=== PATIENT | female | born 1945 | race Caucasian/White ===

== ENCOUNTER 2017-04-13 11:22 | Outpatient (CLI) | payer MEDICARE ==
[~2017-04-13] VITALS: Ht 160 cm; Wt 68.2 kg
--- NOTE | ~2017-04-13 | HEMODYNAMI ---
PATIENT:MEGHAN ARRIAGA MEDICAL RECORD: [id number] : 41 LOCATION:DTashCAT ADMISSION DATE: 04/13/17 Generatedon:04/13/201714:44 Patient name: MEGHAN ARRIAGA Patient #: [id number] SSN: : 1945 Date of study: 04/13/2017 Page: Of Hemodynamic Procedure Report Patient Data Patient Demographics Procedure consent was obtained First Name: MEGHAN Gender: Female Last Name: BART : 1945 Patient #: [id number] Age: 71 year(s) Race: Unknown Additional ID: [id number] Contact details Address: [facility] [address] State: [place] City: [place] Zip code: [address] Past Medical History Allergies Allergen Reaction Date Comments Reported Other allergy 04/13/2017 HCTZ Admission Admission Data Admission Date: 04/13/2017 Admission Time: 11:22 Lab Results Lab Result Date: 04/13/2017 Lab Result Time: 0:00 Biochemistry Name Units Result Min Max Creatinine mg/dl 1.1 --(--*-)-- 0.6 1.3 CBC Name Units Result Min Max Hemoglobin g/dl 12.8 -*(----)-- 13.5 17.5 Procedure Procedure Types Cath Procedure Diagnostic Procedure [facility] w/Coronaries PCI Procedure Coronary Stent Initial PTCA Additional Miscellaneous Procedures Moderate Sedation up to 45 minutes Peripheral Cath Diagnostic Procedure Cath Peripheral Four Vessel Arteriogram Procedure Description Procedure Date Procedure Date: 04/13/2017 Procedure Start Time: 14:05 Procedure End Time: 14:43 Procedure Staff Name Function Israel Barragan MD Performing Physician Ngoc King RT Scrub Mak Taylor RN Nurse Ángela Tabor RT Monitor Procedure Data Cath Procedure Fluoroscopy Diagnostic fluoroscopy Total fluoroscopy Time: time: 10.7 min 10.7 min Diagnostic fluoroscopy Total fluoroscopy dose: dose: 1425 mGy 1425 mGy Contrast Material Contrast Material Type Amount (ml) Isovue 300 195 Entry Location Entry Primary Successful Side Size Upsize Upsize Entry Closure Succes sful Closure Location (Fr) 1 (Fr) 2 (Fr) Remarks Device Remarks Femoral Right 5 Fr 6 Fr Exoseal artery Short Estimated blood loss: 10 ml Diagnostic catheters Device Type Used For End Catheter Placement Cordis 5Fr JL 4.0 Left Coronary Catheter (MP) Angiography Cordis 5Fr 3DRC Catheter Right Coronary (MP) Angiography Cordis 5Fr 3DRC Catheter Cervical carotid (MP) (common) arteriography Cordis 5Fr 3DRC Catheter Vertebral (neck (MP) and/or head) arteriography Cordis 5Fr Pigtail LV Angiography Catheter (MP) Procedure Complications No complications Procedure Medications Medication Administration Route Dosage Oxygen NC 2 l/min Heparin Flush Bag added to field 2 bags (1000units/500ml NS) 0.9% NaCl I.V. 100 ml/hr Fentanyl I.V. 50 mcg Versed I.V. 1 mg Fentanyl I.V. 50 mcg Versed I.V. 1 mg Fentanyl I.V. 50 mcg Heparin Bolus I.V. 4000 units Integrilin (Bolus I.V. 6.2 ml 2mg/ml) Integrilin (Bolus wasted 3.8 ml 2mg/ml) Fentanyl I.V. 50 mcg Plavix P.O. 600 mg Hemodynamics Rest HGB: 12.8 (g/dl) Heart Rate: 34 (bpm) Pressure Samples Time Site Value (mmHg) Purpose Heart Use Rate(bpm) 14:13 LV 116/12,17 EDP 61 Gradients Valve Time Site Site Mean SEP/DFP Peak To Heart Use 1 2 (mmHg) (sec/min) Peak Rate (mmHg) (bpm) Aortic 14:14 LV AO 62 Snapshots Pre Cath Intra NCS Post Cath Vital Signs Time Heart Resp SPO2 NIBP (mmHg) Rhythm Pain Sedation Rate (ipm) (%) Status Level (bpm) 13:56:22 58 17 100 168/65(115) NSR 0 (11) 10(A) , No pain 14:00:41 63 17 96 128/61(103) NSR 0 (11) 10(A) , No pain 14:04:54 63 18 100 139/64(107) NSR 0 (11) 10(A) , No pain 14:09:17 61 17 100 123/53(95) NSR 0 (11) 9(A) , No pain 14:13:33 61 16 99 117/50(94) NSR 0 (11) 9(A) , No pain 14:17:47 58 17 99 107/48(82) NSR 0 (11) 9(A) , No pain 14:21:59 62 17 99 100/43(71) NSR 0 (11) 9(A) , No pain 14:26:08 65 18 100 94/45(71) NSR 0 (11) 9(A) , No pain 14:30:16 64 18 100 100/41(72) NSR 0 (11) 9(A) , No pain 14:34:26 63 18 100 99/44(72) NSR 0 (11) 9(A) , No pain 14:38:30 82 18 100 100/59(81) NSR 0 (11) 9(A) , No pain 14:43:29 71 16 100 129/63(103) NSR 0 (11) 9(A) , No pain Medications Time Medication Route Dose Verified Delivered Reason Notes Effectiveness by by 13:56:30 Oxygen NC 2 Mak Mak Per physician l/min Brandon Taylor RN RN 13:56:41 Heparin Flush added 2 Mak Mak used for Bag to bags Brandon Taylor financial assistance specialist (1000units/500ml field RN NS) 13:56:53 0.9% NaCl I.V. 100 Mak Mak Per physician ml/hr Brandon Taylor RN RN 14:02:53 Fentanyl I.V. 50 Mak Mak for sedation mcg Brandon Taylor RN RN 14:03:02 Versed I.V. 1 mg Mak Mak for sedation Brandon Taylor RN RN 14:07:40 Fentanyl I.V. 50 Mak Mak for sedation mcg Brandon Taylor RN RN 14:07:43 Versed I.V. 1 mg Mak Mak for sedation Brandon Taylor RN RN 14:12:41 Fentanyl I.V. 50 Mak Mak for sedation mcg Brandon Taylor RN RN 14:16:17 Heparin Bolus I.V. 4000 Mak Mak for units Brandon Taylor RN anticoagulation RN 14:16:28 Integrilin I.V. 6.2 Mak Mak for (Bolus 2mg/ml) ml Brandon Taylor RN antiplatelet RN therapy 14:16:37 Integrilin wasted 3.8 Mak Corado for (Bolus 2mg/ml) ml Brandon Taylor RN antiplatelet RN therapy 14:30:31 Fentanyl I.V. 50 Mak Corado for sedation mcg Brandon Taylor RN RN 14:42:18 Plavix P.O. 600 Mak Corado for mg Brandon Taylor RN antiplatelet RN therapy Procedure Log Time Note 13:30:22 Mak Taylor RN sent for patient. Start room use. 13:39:22 Time tracking: Regular hours 13:39:26 Plan of Care:Hemodynamics will remain stable., Cardiac rhythm will remain stable., Comfort level will be maintained., Respiratory function will remain adequate., Patient/ family verbilizes understanding of procedure., Procedure tolerated without complication., Recovers from procedure without complications.. 13:47:02 Patient received from Pre/Post Procedure Room to CCL 2 Alert and oriented. Tansferred to table in Supine position. 13:47:03 Warm blankets applied, and geni hugger turned on for patient comfort. 13:47:03 Correct patient and procedure confirmed by team. 13:47:05 Signed procedure consent form obtained from patient. 13:47:06 ECG and BP/O2 sat monitors applied to patient. 13:47:06 Full Disclosure recording started 13:54:02 Vital chart was started 13:55:10 Baseline sample Acquired. 13:55:15 Rhythm: sinus bradycardia 13:55:25 H&P Date Dictated: 04/11/2017 Within 30 days and on chart., H&P Addendum completed by physician on day of procedure. (MUST COMPLETE FOR ALL OUTPATIENTS). 13:55:26 Pre-procedure instructions explained to patient. 13:55:26 Pre-op teaching completed and patient verbalized understanding. 13:55:29 Family in patients room. 13:55:31 Patient NPO since Midnight. 13:55:41 Patient allergic to Other allergyHCTZ 13:55:43 Is the patient allergic to Iodine/contrast media? No. 13:55:45 Is patient on blood thinner?No 13:55:46 Patient diabetic? No. 13:55:50 Previous problem with sedation/anesthesia? No ? 13:55:51 Snore? No 13:55:52 Sleep apnea? No 13:55:53 Deviated septum? No 13:55:53 Opens mouth fully? Yes 13:55:54 Sticks out tongue? Yes 13:55:56 Airway obstruction? No ? 13:55:59 Dentures? Yes IN 13:56:03 Pre procedure: right dorsailis pedis pulse 2+ Normal; easily identifiable; not easily obliterated 13:56:11 Patient pain scale 0/10 ?. 13:56:15 IV patent on arrival in left hand with 0.9% NaCl at [facility]. 13:56:30 Oxygen 2 l/min NC was administered by Mak Taylor RN; Per physician; 13:56:39 Lab Result : Creatinine 1.1 mg/dl 13:56:39 Lab Result : Hemoglobin 12.8 g/dl 13:56:41 Heparin Flush Bag (1000units/500ml NS) 2 bags added to field was administered by Mak Taylor RN; used for procedure; 13:56:43 Lab results completed and on chart. 13:56:47 Right groin area was prepped with chlora-prep and draped in sterile fashion 13:56:48 Alarms reviewed by R. N. 13:56:48 Sharps counted by scrub and verified by R.N. 13:56:53 0.9% NaCl 100 ml/hr I.V. was administered by Mak Taylor RN; Per physician; 13:56:53 Use device set Femoral Dx 13:56:55 Acist Syringe opened to sterile field. 13:56:55 Bag Decanter opened to sterile field. 13:56:56 Medline Cath Pack opened to sterile field. 13:56:56 Terumo 5Fr [place] Sheath opened to sterile field. 13:56:57 St Rutsy 260cm J .035 wire opened to sterile field. 13:56:58 Acist Hand Control opened to sterile field. 13:56:58 Acist Manifold opened to sterile field. 13:56:59 Diagnostic Infinity 5Fr Multipack catheter opened to sterile field. 13:56:59 Tegaderm 4 x 4 opened to sterile field. 13:57:12 Procedure type changed to Cath procedure, Diagnostic procedure, LHC, LHC w/Coronaries, PCI procedure, Coronary Stent Initial, PTCA Additional, Miscellaneous Procedures, Moderate Sedation up to 45 minutes, Peripheral Cath Diagnostic Procedure, Cath Peripheral, Four Vessel Arteriogram 14:02:26 Final Timeout: patient, procedure, and site verified with staff and physician. All members of the team are in agreement. 14:02:28 Right groin site verified by team. 14:02:30 Physical assessment completed. ASA score P 2 - A patient with mild systemic disease as per Israel Barragan MD. 14:02:33 Sedation plan: IV Moderate Sedation Versed, Fentanyl 14:02:53 Fentanyl 50 mcg I.V. was administered by Mak Taylor RN; for sedation; 14:03:02 Versed 1 mg I.V. was administered by Mak Taylor RN; for sedation; 14:05:07 Zero performed for pressure channel P1 14:05:12 Procedure started. 14:05:19 Local anesthetic to right femoral artery with Lidocaine 2% by Israel Barragan MD.INITIAL ACCESS ONLY 14:06:59 A 5 Fr sheath was inserted into the Right Femoral artery 14:07:22 A Cordis 5Fr JL 4.0 Catheter (MP) was advanced over the wire and used for Left Coronary Angiography. 14:07:40 Fentanyl 50 mcg I.V. was administered by Mak Taylor RN; for sedation; 14:07:43 Versed 1 mg I.V. was administered by Mak Taylor RN; for sedation; 14:08:55 Catheter removed. 14:09:00 A Cordis 5Fr 3DRC Catheter (MP) was advanced over the wire and used for Right Coronary Angiography. 14:10:31 A Cordis 5Fr 3DRC Catheter (MP) was advanced over the wire and used for Cervical carotid (common) arteriography. 14:11:31 A Cordis 5Fr 3DRC Catheter (MP) was advanced over the wire and used for Vertebral (neck and/or head) arteriography. 14:12:20 Catheter removed. 14:12:41 Fentanyl 50 mcg I.V. was administered by Mak Taylor RN; for sedation; 14:13:21 A Cordis 5Fr Pigtail Catheter (MP) was advanced over the wire and used for LV Angiography. 14:14:06 LV gram done using ANDERSON 14:14:11 EF : 55 % 14:14:14 Injector settings: Ml/sec: 5, Volume: 15, 14:14:21 Catheter removed. 14:14:42 Sheath upsized to a 6 Fr Short. 14:16:17 Heparin Bolus 4000 units I.V. was administered by Mak Taylor RN; for anticoagulation; 14:16:28 Integrilin (Bolus 2mg/ml) 6.2 ml I.V. was administered by Mak Taylor RN; for antiplatelet therapy; 14:16:37 Integrilin (Bolus 2mg/ml) 3.8 ml wasted was administered by Mak Taylor RN; for antiplatelet therapy; 14:17:06 6 Fr XBLAD 3.5 guide catheter was inserted over the wire 14:17:21 Cordis 6FR XBLAD 3.5 guide catheter opened to sterile field. 14:17:21 Vasquez [place] 300cm 0.014 guide wire opened to sterile field. 14:17:22 Terumo 6Fr [place] Sheath opened to sterile field. 14:19:54 [place] wire advanced. 14:23:42 Wire removed. unable to cross lesion. 14:24:01 Vasquez Whisper J 300cm 0.014 guide wire opened to sterile field. 14:24:10 Whisper wire advanced. 14:26:32 Inflation Number: 1 A Medtronic Integrity 3.5 X 18 stent was prepped and advanced across the Mid LAD. The stent was deployed at 12 MALVIN for 0:27 (min:sec). 14:27:12 Wire redirected to Diag. 14:29:36 Stent catheter was removed intact over wire. 14:30:31 Fentanyl 50 mcg I.V. was administered by Mak Taylor RN; for sedation; 14:31:38 Inflation number: 1 A Mozec Rx 2.5 x 14 balloon was prepped and advanced across the 1st Diag, then inflated to 8 MALVIN for 0:28 (min:sec). 14:32:50 Balloon removed over the wire. 14:33:57 Wire redirected to LAD. 14:37:18 Inflation Number: 2 A Medtronic Integrity 3.0 X 15 stent was prepped and advanced across the Mid LAD. The stent was deployed at 14 MALVIN for 0:33 (min:sec). 14:37:56 Stent catheter was removed intact over wire. 14:37:56 Wire removed. 14:37:57 Guide catheter removed. 14:38:11 Cordis 6Fr Exoseal opened to sterile field. 14:38:18 Sheath removed intact; hemostasis achieved with Exoseal to the Right Femoral artery. 14:38:20 Procedure ended.(Physican Out) 14:38:35 Fluoroscopy time 10.70 minutes. 14:38:37 Fluoroscopy dose: 1425 mGy 14:38:37 Flurop Dose total: 1425 14:38:40 Contrast amount:Isovue 300 195ml. 14:38:41 Sharps counted by scrub and verified by R.N. 14:38:42 Insertion/operative site no bleeding no hematoma. 14:38:44 Post-op/insertion site Right Femoral artery dressed using a 4 x 4 and Tegaderm. 14:38:48 Post right femoral artery:stable, clean and dry 14:38:49 Post Procedure Pulses reassessed and unchanged 14:38:51 Post-procedure physical assessment completed. ASA score P 2 - A patient with mild systemic disease as per Israel Barragan MD. 14:38:54 Post procedure rhythm: unchanged. 14:38:56 Estimated blood loss: 10 ml 14:38:57 Post procedure instruction explained to patient.Patient verbalizes understanding. 14:38:57 Patient needs reinforcement of post procedure teaching. 14:39:28 Procedure Complication : No complications 14:39:31 See physician's report for complete and final results. 14:41:55 Procedure and supply charges have been captured, reviewed, submitted and are correct. 14:42:18 Plavix 600 mg P.O. was administered by Mak Taylor RN; for antiplatelet therapy; 14:43:32 Vital chart was stopped 14:43:34 Report given to Pre/Post Procedure Room. 14:43:37 Patient transfered to Pre/Post Procedure Room with Stretcher. 14:43:39 Procedure ended. 14:43:39 Full Disclosure recording stopped 14:43:50 End room use (Document Last) Intervention Summary Intervention Notes Time ActionType Lesion and Equipment Action# Pressure Duration Attributes Used 14:26:32 Place stent Mid LAD Medtronic 1 12 00:27 Integrity 3.5 X 18 stent 14:31:38 Inflate 1st Diag Mozec Rx 1 8 00:28 balloon 2.5 x 14 balloon 14:37:18 Place stent Mid LAD Medtronic 2 14 00:33 Integrity 3.0 X 15 stent Device Usage Item Name Manufacture Quantity Catalog Hospital Part Current Minimal L ot# / Number Charge Number Stock Stock Serial# Code [facility] 1 [id number] 802940 900074 20 Syringe Medical [employer] Inc Bag Microtek 1 2002 854958 73752 596470 5 Management [employer] Medline Cardinal 1 [id number] 063768 16491 393823 5 Cath Pack Health Terumo 5Fr Terumo 1 [id number] 195950 245655 083429 [address] [place] [address] Rusty 1 541985 457621 623883 676649 30 260cm J .035 wire Acist Hand Acist 1 09437 748766 194103 130227 5 [employer] Inc Acist Acist 1 45884 244812 994381 788950 5 ULURU Systems Inc Diagnostic Cardinal 1 [id number] 646193 39294 438225 30 Sulfagenix Health 5Fr Multipack catheter Tegaderm 4 3M 1 1626W 188413 706530 091360 5 x 4 Cordis 5Fr Cardinal 1 926821 5 JL 4.0 Health Catheter (MP) Cordis 5Fr Cardinal 1 221679 5 3DRC Health Catheter (MP) Cordis 5Fr Cardinal 1 969504 5 Pigtail Health Catheter (MP) Cordis 6FR Cardinal 1 [id number] 264915 538346 400297 10 XBLAD 3.5 Health guide catheter Vasquez Vasquez 1 [id number] 045192 464789 020934 1 [place] Vascular 300cm 0.014 guide wire Terumo 6Fr Terumo 1 [id number] 806152 143589 829486 40 [place] Sheath Vasquez Vasquez 1 [id number] 723275 194190 353938 5 Whisper J Vascular 300cm 0.014 guide wire Medtronic Medtronic 1 [id number] 902067 570051 1 0 [id number] Integrity 3.5 X 18 stent Mozec Rx Cardinal 1 [id number] 157945 77915 728504 5 U MOA84 2.5 x 14 Health balloon Medtronic Medtronic 1 [id number] 761687 863437 1 0 [id number] Integrity 3.0 X 15 stent Cordis 6Fr Cardinal 1 [id number] 406335 828909 791143 10 [facility] Applied [employer] Signature Audit Byers Stage Time Signature Unsigned Intra-Procedure 04/13/2017 Ángela 2:44:01 PM Counts RT(R) Signatures Monitor : Ángela Signature : Counts RT Date : Time : [address] [place] [address]
[2017-04-13] MEDS ORDERED: LEVOTHYROXINE50 MCG PO (11:46)
[2017-04-13] MEDS ORDERED: ZYLOPRIM300 MG PO (11:46)
[2017-04-13] MEDS ORDERED: ZESTRIL20 MG PO (11:47)
[2017-04-13] MEDS ORDERED: TENORMIN25 MG PO (11:47)
[2017-04-13 11:56] VITALS: BP 139/58; Ht 160 cm; Wt 68.2 kg
[2017-04-13 12:12] LABS: ANION GAP 15.5 mmol/L (8-16); CALCIUM 9.3 mg/dL (8.5-10.1); CARBON DIOXIDE 23.6 mmol/L (21.0-32.0); CREATININE - SERUM 1.1 mg/dL (0.6-1.3); POTASSIUM - SERUM 4.1 mmol/L (3.5-5.1)
[2017-04-13 12:40] LABS: BASOPHILS 0.3 % (0-2); EOSINOPHILS 1.8 % (0-7); HEMATOCRIT 37.4 % (36.0-48.0); HEMOGLOBIN 12.8 g/dL (12-16); IMMATURE GRANULOCYTES 0.4 % (0-5); LYMPHOCYTES 26.1 % (15-50); MCH 29.2 pg (26.0-34.0); MCHC 34.2 g/dL (31.0-37.0); MCV 85.4 fL (80.0-100.0); MEAN PLATELET VOLUME 11.3 fL (7.4-10.4); MONOCYTES 9.4 % (2-11); PLATELET COUNT 256 10x3/uL (130-400); RBC 4.38 10x6/uL (4.00-5.40); WBC 7.2 10x3/uL (4.8-10.8)
[2017-04-13] MEDS ORDERED: PLAVIX75 MG PO (15:10)
--- NOTE | 2017-04-13 15:15 | NUR ---
RIGHT GROIN CDI, NO HEMATOMA OR BLEEDING AT SITE, SON AT SIDE
--- NOTE | 2017-04-13 15:45 | NUR ---
NO CHANGES, RESTING WITH SON AT SIDE, RIGHT GROIN CDI.
--- NOTE | 2017-04-13 18:50 | NUR ---
IV D'C WITH CATH TIP INTACT, WRITTEN AND VERBAL INSTRUCTIONS GIVEN TO PT AND SON, VERBAL UNDERSTANDING NOTED, RIGHT GROIN-CDI, D'C HOME. DENIES CHEST PAIN
--- NOTE | 2017-04-14 14:06 | OP ---
PATIENT NAME: MEGHAN ARRIAGA MEDICAL RECORD: [id number] :41 LOCATION:D.CAT ADMISSION DATE: SURGEON: YADIRA RETANA MD DATE OF OPERATION: 04/13/2017 PROCEDURES: Left heart catheterization, selective coronary angiography, right femoral artery approach CATHETERS: A 5-Marshallese sheath, 5/4 left and right Tammie. The procedure was well tolerated and we proceeded immediately to PTCA stenting to the area of the LAD. FINDINGS: Left ventriculography in 30-degree ANDERSON view: Normal wall motion, normal systolic function. CORONARY ANATOMY: LEFT MAIN: Left main is free of disease. LAD: The takeoff of the large diagonal branch shows a 90% stenosis. CIRCUMFLEX: Codominant circumflex free of disease. RIGHT CORONARY ARTERY: Codominant right system. Previously placed stent is widely patent and no progression of [place] river disease. IMPRESSION: Single vessel disease involving the LAD. PLAN: Intervention of this vessel momentarily. DESCRIPTION: A 5-Marshallese sheath was changed for a 6-Marshallese sheath. An XB LAD guide catheter provided good guide catheter support. This was followed by a 300 cm Rutledge XT wire was placed across the site occluded LAD down towards the vessel. Stent deployed were a 3.5 x 18 mm proximally and a 3.0 x 14 mm distally. Both stents used were an Integrity nondrug-eluting stent up to 14 atmospheres for 45 seconds. Final injection shows excellent resolution of 89% stenosis in the LAD; however, there is some snowplowing to the diagonal where we will take the indwelling wire and placed across the struts into the diagonal itself, was followed by a 2.5 x 12 mm [place] balloon was inflated in this area and inflated up to 10 atmospheres. Final injection shows excellent resolution of the diagonal snowplowing 80% stenosis, no significant residual. IMPRESSION: Successful percutaneous transluminal coronary angioplasty stent LAD. Successful percutaneous transluminal coronary angioplasty to the diagonal. Sheath was closed with ExoSeal device, heparin was used during the case. Plavix was loaded in the lab. TRANSINT:[id number] Voice Confirmation ID: [id number] DOCUMENT ID: [id number] YADIRA RETANA MD at 1406 CC: [id number] DICTATION DATE: 04/13/17 1440 JUICE WEIGHER: 04/14/17 0031 DEP CLI 04/13/17 [facility] [address] [place] [address]
--- NOTE | 2017-04-14 14:06 | OP ---
PATIENT NAME: MEGHAN ARRIAGA MEDICAL RECORD: [id number] :41 LOCATION:D.CAT ADMISSION DATE: SURGEON: YADIRA RETANA MD DATE OF OPERATION: 04/13/2017 PROCEDURE: Four-vessel arteriography procedure using indwelling sheath from a coronary angiography. We used the right guiding catheter. FINDINGS: 1. Selective engagement of the right common carotid, this shows smooth-walled vessel with no significant stenosis. Right external carotid, single vessel, no significant stenosis. Right internal carotid, single vessel and no significant stenosis. 2. The right coronary catheter was pulled into the left carotid artery and left common carotid was selectively engaged. This shows left common carotid, a single vessel without significant stenosis. Left internal carotid was a smooth-walled vessel with no significant stenosis. The left external carotid, smooth-walled vessel, without significant stenosis. IMPRESSION: Normal 4-vessel arteriography. TRANSINT:[id number] Voice Confirmation ID: [id number] DOCUMENT ID: [id number] YADIRA RETANA MD at 1406 CC: [id number] DICTATION DATE: 04/13/17 1450 PAIN MANAGEMENT PHYSICIAN: 04/13/17 2342 DEP CLI 04/13/17 [facility] [address] [facility] [place] [address]
== END 2017-04-13 19:00 | disposition home or self-care (01) ==
LOC: D.CATH 11:22
PROVIDERS: Internal Medicine Interventional Cardiology
DX: I25.119 Atherosclerotic heart disease of native coronary artery with unspecified angina pectoris (principal); Z01.812 Encounter for preprocedural laboratory examination

== ENCOUNTER 2017-11-23 10:51 | Outpatient (CLI) | payer MEDICARE ==
[~2017-11-23] VITALS: Ht 160 cm; Wt 70.5 kg
--- NOTE | ~2017-11-23 | OP ---
PATIENT NAME: MEGHAN ARRIAGA MEDICAL RECORD: [id number] :41 LOCATION:D.CAT ADMISSION DATE: SURGEON: YADIRA RETANA MD DATE OF OPERATION: 11/23/2017 PROCEDURE: Left heart catheterization, selective coronary angiography, right femoral artery approach. CATHETERS: A 5-[place] sheath, 5/4 left and right Tammie, 5/4 pig. The procedure was tolerated. The patient returned to tsang, sheath removed. ExoSeal device placed. FINDINGS: Left ventriculography in 30-degree ANDERSON view: Normal wall motion, normal systolic function. CORONARY ANATOMY: LEFT MAIN: Left main is free of disease. LAD: An area of previous stenting is widely patent. There is a fairly large diagonal branch jailed from previous stenting. CIRCUMFLEX: Free of disease. RIGHT CORONARY ARTERY: Codominant system, widely patent stent, otherwise free of disease. IMPRESSION: Angina, probably from the diagonal. PLAN: Intervention momentarily. DESCRIPTION: A 5-[place] sheath was changed for a 6-[place] sheath. A JL4 guiding catheter provided good guide catheter support followed by 300 cm Whisper wire placed across through the stent struts into the distal portion of the diagonal. Stent used was a 3.0 x 12 mm Graves balloon up to 12 atmospheres for 45 seconds. Final angiography showed excellent resolution of a 90% stenosis, no more than 10% residual. LEENA flow was 3 throughout the procedure. Integrilin was used during the case. TRANSINT:[id number] Voice Confirmation ID: [id number] DOCUMENT ID: [id number] YADIRA RETANA MD at 0920 CC: [id number] DICTATION DATE: 11/23/17 1340 YARDAGE CALLER: 11/23/17 1552 DEP CLI 11/23/17 [place] [id number]
--- NOTE | ~2017-11-23 | HEMODYNAMI ---
PATIENT:MEGHAN ARRIAGA MEDICAL RECORD: [id number] : 41 LOCATION:[facility] ADMISSION DATE: 11/23/17 Generatedon:11/23/201714:10 Patient name: MEGHAN ARRIAGA Patient #: [id number] SSN: : 1945 Date of study: 11/23/2017 Page: Of Hemodynamic Procedure Report Patient Data Patient Demographics Procedure consent was obtained First Name: MEGHAN Gender: Female Last Name: BART : 1945 Patient #: [id number] Age: 72 year(s) Race: Unknown Additional ID: [id number] Contact details Address: [facility] [address] State: [place] City: [place] Zip code: [address] Past Medical History Allergies Allergen Reaction Date Comments Reported Other allergy 04/13/2017 HCTZ Other allergy 11/23/2017 HYDROCHLOROTHIAZIDE Admission Admission Data Admission Date: 11/23/2017 Admission Time: 10:51 Height (in.): 5.3 BSA: 0.29 (m2) Height (cm.): 13.46 BMI: 3904.55 (kg/m2) Weight (lbs.): 156 Weight (kg.): 70.76 Lab Results Lab Result Date: 11/23/2017 Lab Result Time: 0:00 Biochemistry Name Units Result Min Max BUN mg/dl 14 --(--*-)-- 7 18 Creatinine mg/dl 1.2 --(---*)-- 0.6 1.3 CBC Name Units Result Min Max Hemoglobin g/dl 12.1 *-(----)-- 13.5 17.5 Procedure Procedure Types Cath Procedure Diagnostic Procedure Sedation Charges Moderate Sedation up to 15 minutes [facility] w/Coronaries PCI Procedure PTCA PTCA Initial PTCA Additional Procedure Description Procedure Date Procedure Date: 11/23/2017 Procedure Start Time: 13:08 Procedure End Time: 13:38 Procedure Staff Name Function Ángela Tabor RT Monitor Israel Nielsen MD Performing Physician Bran Mayfield RN Nurse Nayana Knight RT Scrub Procedure Data Cath Procedure Fluoroscopy Diagnostic fluoroscopy Total fluoroscopy Time: 9.9 time: 9.9 min min Diagnostic fluoroscopy Total fluoroscopy dose: 772 dose: 772 mGy mGy Contrast Material Contrast Material Type Amount (ml) Isovue 300 128 Entry Location Entry Primary Successful Side Size Upsize Upsize Entry Closure Succes sful Closure Location (Fr) 1 (Fr) 2 (Fr) Remarks Device Remarks Femoral Right 5 Fr 6 Fr Exoseal artery Short Estimated blood loss: 10 ml Diagnostic catheters Device Type Used For End Catheter Placement MULTIPACK JL 4.0 5Fr Left Coronary catheter Angiography MULTIPACK 3DRC 5Fr Right Coronary catheter Angiography MULTIPACK Pigtail 5 Fr LV Angiography catheter Procedure Complications No complications Procedure Medications Medication Administration Route Dosage 0.9% NaCl I.V. 100 ml/hr Oxygen NC 2 l/min Heparin Flush Bag added to field 2 bags (1000units/500ml NS) Lidocaine 2% added to field 20 Benadryl I.V. 50 mg Versed I.V. 1 mg Fentanyl I.V. 50 mcg Versed I.V. 1 mg Fentanyl I.V. 50 mcg Heparin Bolus I.V. 5000 units Integrilin (Bolus I.V. 6.2 ml 2mg/ml) Integrilin (Bolus wasted 3.8 ml 2mg/ml) Lopressor I.V. 5 mg Plavix P.O. 600 mg Lopressor I.V. 5 mg Vasotec I.V. 2.5 mg Hemodynamics Rest BSA: 0.29 (m2) HGB: 12.1 (g/dl) O2 Consumption: Estimated: 26.77 (ml/min) O2 Con sumption indexed: Estimated:92.31 (ml/min/m) Heart Rate: 73 (bpm) Pressure Samples Time Site Value (mmHg) Purpose Heart Use Rate(bpm) 13:15 LV 160/29,35 EDP 72 Snapshots Pre Cath Intra NCS Post Cath Vital Signs Time Heart Resp SPO2 etCO2 NIBP (mmHg) Rhythm Pain Sedation Rate (ipm) (%) (mmHg) Status Level (bpm) 12:56:39 64 15 100 31.6 184/72(153) NSR 0 (11) 10(A) , No pain 13:01:28 68 16 99 36.2 165/76(137) NSR 0 (11) 10(A) , No pain 13:06:15 71 28 100 33.1 154/77(126) NSR 0 (11) 10(A) , No pain 13:11:45 66 15 100 38.4 165/69(136) NSR 0 (11) 10(A) , No pain 13:16:32 75 15 98 36.2 139/76(121) NSR 0 (11) 10(A) , No pain 13:21:55 78 18 100 35.4 178/83(142) NSR 0 (11) 10(A) , No pain 13:26:44 73 15 100 34.6 166/73(128) NSR 0 (11) 10(A) , No pain 13:31:28 79 18 100 30.9 177/93(152) NSR 0 (11) 10(A) , No pain 13:36:17 77 21 30.1 187/87(151) NSR 0 (11) 10(A) , No pain 13:59:24 74 16 0 217/93(179) NSR 0 (11) 10(A) , No pain 14:03:46 68 11 0 205/80(149) NSR 0 (11) 10(A) , No pain 14:10:07 68 18 0 197/95(138) NSR 0 (11) 10(A) , No pain Medications Time Medication Route Dose Verified Delivered Reason Notes Effectiveness by by 12:59:19 0.9% NaCl I.V. 100 Bran Bran Per physician ml/hr Tran Mayfield RN, RN 12:59:30 Oxygen NC 2 Bran Bran Per physician l/min Tran Mayfield RN RN 12:59:41 Heparin Flush added 2 Bran Bran used for Bag to bags Tran Mayfield procedure (1000units/500ml field RODNEY RN NS) 12:59:52 Lidocaine 2% added 20ml Bran Bran for local to vial Tran Mayfield anesthetic field RASHAUN RODNEY 13:00:07 Benadryl I.V. 50 mg Bran Bran Per physician Tran Mayfield RN RN 13:02:19 Versed I.V. 1 mg Bran Bran for sedation Tran Mayfield RN, RN 13:02:27 Fentanyl I.V. 50 Bran Bran for sedation mcg Lorigan Lorigan RN RN 13:07:22 Versed I.V. 1 mg Bran Bran for sedation Tran Mayfield RN RN 13:07:31 Fentanyl I.V. 50 Bran Bran for sedation mcg Tran Mayfield RN RN 13:18:37 Heparin Bolus I.V. 5000 Bran Bran for units Tran Tran anticoagulation RN RN 13:18:53 Integrilin I.V. 6.2 Bran Bran for (Bolus 2mg/ml) ml Tran Tran antiplatelet RN RN therapy 13:21:20 Integrilin wasted 3.8 Bran Bran to sharp's (Bolus 2mg/ml) ml Tran Mayfield RN RN 13:21:34 Lopressor I.V. 5 mg Bran Bran for Lorjustin Cuadrajustin hypertension RN RN 13:34:07 Plavix P.O. 600 Bran Bran for mg Tran Tran antiplatelet RN RN therapy 13:59:46 Lopressor I.V. 5 mg Bran Bran for Lorjustin Cuadrajustin hypertension RN RN 14:07:10 Vasotec I.V. 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 12:34:23 Signed procedure consent form obtained from patient. 12:34:57 Patient Height : 5.3 inches 12:35:02 Patient Weight : 156 lbs 12:35:22 H&P Date Dictated: 11/14/2017 Within 30 days and on chart.. 12:37:41 Lab Result : Hemoglobin 12.1 g/dl 12:37:41 Lab Result : Creatinine 1.2 mg/dl 12:37:41 Lab Result : BUN 14 mg/dl 12:38:10 Patient allergic to Other allergyHYDROCHLOROTHIAZIDE 12:40:42 Bran Mayfield RN sent for patient. Start room use. 12:45:22 Patient received from Pre/Post Procedure Room to CCL 1 Alert and oriented. Tansferred to table in Supine position. 12:45:23 Warm blankets applied, and geni hugger turned on for patient comfort. 12:45:23 Correct patient and procedure confirmed by team. 12:45:24 ECG and BP/O2 sat monitors applied to patient. 12:45:26 Full Disclosure recording started 12:54:54 Rhythm: sinus rhythm 12:55:37 Vital chart was started 12:55:53 Pre-op teaching completed and patient verbalized understanding. 12:55:53 Pre-procedure instructions explained to patient. 12:55:54 Family in waiting room. 12:55:56 Patient NPO since Midnight. 12:56:03 Is the patient allergic to Iodine/contrast media? No. 12:56:07 Is patient on blood thinner?No 12:56:11 Patient diabetic? No. 12:56:34 Previous problem with sedation/anesthesia? No ? 12:56:36 Snore? No 12:56:37 Sleep apnea? No 12:56:38 Deviated septum? No 12:56:39 Sticks out tongue? Yes 12:56:39 Opens mouth fully? Yes 12:56:41 Airway obstruction? No ? 12:56:45 Dentures? Yes IN 12:56:49 Pre procedure: right dorsailis pedis pulse 2+ Normal; easily identifiable; not easily obliterated 12:56:50 Modified Artemio's test Ulnar < 7 seconds 12:56:52 Patient pain scale 0/10 ?. 12:56:57 IV patent on arrival in left hand with 0.9% NaCl at KVO. 12:57:00 Lab results completed and on chart. 12:57:03 Right groin area was prepped with chlora-prep and draped in sterile fashion 12:57:04 Sharps counted by scrub and verified by R.N. 12:57:04 Alarms reviewed by R. N. 12:57:07 Use device set Femoral Dx 12:57:08 ACIST Syringe (97150) opened to sterile field. 12:57:09 Medline Cath Pack ([id number]) opened to sterile field. 12:57:09 Bag Decanter (2002S) opened to sterile field. 12:57:10 DIAGNOSTIC WIRE .035 260cm J wire (205122) opened to sterile field. 12:57:10 SHEATH 5FR [place] (MEU461) opened to sterile field. 12:57:11 ACIST Hand Control (33236) opened to sterile field. 12:57:12 ACIST Manifold (00806) opened to sterile field. 12:57:13 Tegaderm 4 x 4 (1626W) opened to sterile field. 12:57:13 DIAGNOSTIC Multipack 5Fr catheter set ([id number]) opened to sterile field. 12:57:18 PERCUTANEOUS ENTRY 19GA needle opened to sterile field. 12:59:19 0.9% NaCl 100 ml/hr I.V. was administered by Bran Mayfield RN; Per physician; 12:59:30 Oxygen 2 l/min NC was administered by Bran Mayfield RN; Per physician; 12:59:41 Heparin Flush Bag (1000units/500ml NS) 2 bags added to field was administered by Bran Mayfield RN; used for procedure; 12:59:52 Lidocaine 2% 20ml vial added to field was administered by Bran Mayfield RN; for local anesthetic; 13:00:07 Benadryl 50 mg I.V. was administered by Bran Mayfield RN; Per physician; 13:01:02 Baseline sample Acquired. 13:01:29 Physician paged 13:01:41 Final Timeout: patient, procedure, and site verified with staff and physician. All members of the team are in agreement. 13:01:44 Right groin site verified by team. 13:01:47 Physical assessment completed. ASA score P 2 - A patient with mild systemic disease as per Israel Nielsen MD. 13:01:53 Sedation plan: IV Moderate Sedation Medication:Versed, Fentanyl 13:02:19 Versed 1 mg I.V. was administered by Bran Mayfield RN; for sedation; 13:02:27 Fentanyl 50 mcg I.V. was administered by Bran Mayfield RN; for sedation; 13:05:35 Zero performed for pressure channel P1 13:05:40 Zero performed for pressure channel P1 13:07:22 Versed 1 mg I.V. was administered by Bran Mayfield RN; for sedation; 13:07:31 Fentanyl 50 mcg I.V. was administered by Bran Mayfield RN; for sedation; 13:07:59 Procedure started. 13:08:20 Local anesthetic to right femoral artery with Lidocaine 2% by Israel Nielsen MD.INITIAL ACCESS ONLY 13:09:55 A 5 Fr sheath was inserted into the Right Femoral artery 13:10:29 A MULTIPACK JL 4.0 5Fr catheter was advanced over the wire and used for Left Coronary Angiography. 13:12:54 Catheter removed. 13:13:29 A MULTIPACK 3DRC 5Fr catheter was advanced over the wire and used for Right Coronary Angiography. 13:14:33 Catheter removed. 13:14:45 A MULTIPACK Pigtail 5 Fr catheter was advanced over the wire and used for LV Angiography. 13:14:58 Use device set SHARPS PCI 13:15:00 INFLATOR Merit BasixCompak (WG3577) opened to sterile field. 13:15:01 SHEATH 6FR [place] (QRF158) opened to sterile field. 13:15:09 WHISPER 300cm guide wire ([id number]) opened to sterile field. 13:15:27 LV gram done using ANDERSON 13:15:28 LV hemodynamics recorded. 13:15:44 Injector settings: Ml/sec: 10, Volume: 20, 13:15:51 EF : 50 % 13:15:55 Catheter removed. 13:16:08 Sheath upsized to a 6 Fr Short. 13:18:06 6 Fr JL 4.0 guide catheter was inserted over the wire 13:18:37 Heparin Bolus 5000 units I.V. was administered by Bran Mayfield RN; for anticoagulation; 13:18:53 Integrilin (Bolus 2mg/ml) 6.2 ml I.V. was administered by Bran Mayfield RN; for antiplatelet therapy; 13:19:32 GUIDE 6FR JL 4.0 catheter ([id number]) opened to sterile field. 13:19:50 WHISPER wire advanced. 13:21:20 Integrilin (Bolus 2mg/ml) 3.8 ml wasted was administered by Bran Mayfield RN; to sharp's; 13:21:34 Lopressor 5 mg I.V. was administered by Bran Mayfield RN; for hypertension; 13:26:52 Inflation number: 1 A EMERGE OTW 3.0 x 12 balloon ([id number]) was prepped and advanced across the 1st Diag, then inflated to 8 MALVIN for 0:21 (min:sec). 13:27:11 Inflation number: 2 The EMERGE OTW 3.0 x 12 balloon ([id number]) was reinflated across the 1st Diag, to 6 MALVIN for 0:12 (min:sec). 13:27:27 Inflation number: 3 The EMERGE OTW 3.0 x 12 balloon ([id number]) was reinflated across the 1st Diag, to 6 MALVIN for 0:06 (min:sec). 13:27:45 Inflation number: 4 The EMERGE OTW 3.0 x 12 balloon ([id number]) was reinflated across the 1st Diag, to 4 MALVIN for 0:08 (min:sec). 13:27:58 Inflation number: 5 The EMERGE OTW 3.0 x 12 balloon ([id number]) was reinflated across the 1st Diag, to 8 MALVIN for 0:09 (min:sec). 13:28:29 Wire redirected to LAD. 13:29:14 Inflation number: 1 The EMERGE OTW 3.0 x 12 balloon ([id number]) was reinflated across the Mid LAD, to 8 MALVIN for 0:11 (min:sec). 13:29:48 Inflation number: 2 The EMERGE OTW 3.0 x 12 balloon ([id number]) was reinflated across the Mid LAD, to 12 MALVIN for 0:20 (min:sec). 13:30:07 Balloon removed over the wire. 13:30:08 Guide catheter removed. 13:30:08 Wire removed. 13:30:18 Sheath removed intact; hemostasis achieved with Exoseal to the Right Femoral artery. 13:30:20 Procedure ended.(Physican Out) 13:30:37 Fluoroscopy time 09.90 minutes. 13:30:42 Fluoroscopy dose: 772 mGy 13:30:42 Flurop Dose total: 772 13:30:45 Contrast amount:Isovue 300 128ml. 13:30:47 Sharps counted by scrub and verified by R.N. 13:30:49 Insertion/operative site no bleeding no hematoma. 13:31:00 Post-op/insertion site Right Femoral artery dressed using a 4 x 4 and Tegaderm. 13:31:04 Post right femoral artery:stable, clean and dry 13:31:05 Post Procedure Pulses reassessed and unchanged 13:31:08 Post-procedure physical assessment completed. ASA score P 2 - A patient with mild systemic disease as per Israel Nielsen MD. 13:31:09 Post procedure rhythm: unchanged. 13:31:13 Estimated blood loss: 10 ml 13:31:14 Post procedure instruction explained to patient.Patient verbalizes understanding. 13:31:15 Patient needs reinforcement of post procedure teaching. 13:32:01 Procedure type changed to Cath procedure, Diagnostic procedure, Sedation Charges, Moderate Sedation up to 15 minutes, LHC, LHC w/Coronaries, PCI procedure, PTCA, PTCA Initial, PTCA Additional 13:32:06 Procedure Complication : No complications 13:32:08 See physician's report for complete and final results. 13:33:31 EXOSEAL 6Fr (EX600) opened to sterile field. 13:34:07 Plavix 600 mg P.O. was administered by Bran Mayfield RN; for antiplatelet therapy; 13:35:52 Procedure and supply charges have been captured, reviewed, submitted and are correct. 13:37:59 Femstop placed over the right femoral artery at 200 mmHg. Hemostasis achieved. 13:38:03 Post right femoral artery:bleeding 13:38:15 FEMSTOP Gold (F38069) opened to sterile field. 13:38:41 Vital chart was stopped 13:38:45 Report given to Pre/Post Procedure Room. 13:38:57 Full Disclosure recording stopped 13:38:57 Procedure ended. 13:39:03 End room use (Document Last) 13:50:13 PATIENT STILL BLEEDING. REMOVED FEMSTOP AND HELD MANUAL PRESSURE FOR 10 MINUTE. REAPPLIED FEMSTOP AT 200MMHG. 13:56:47 Vital chart was started 13:59:46 Lopressor 5 mg I.V. was administered by Bran Mayfield RN; for hypertension; 14:07:10 Vasotec 2.5 mg I.V. was administered by Bran Mayfield RN; for hypertension; 14:10:38 Patient transfered to Pre/Post Procedure Room with Stretcher. Intervention Summary Intervention Notes Time ActionType Lesion and Equipment Action# Pressure Duration Attributes Used 13:26:52 Inflate 1st Diag EMERGE OTW 1 8 00:21 balloon 3.0 x 12 balloon ([id number]) 13:27:11 Reinflate 1st Diag EMERGE OTW 2 6 00:12 balloon 3.0 x 12 balloon ([id number]) 13:27:27 Reinflate 1st Diag EMERGE OTW 3 6 00:06 balloon 3.0 x 12 balloon ([id number]) 13:27:45 Reinflate 1st Diag EMERGE OTW 4 4 00:08 balloon 3.0 x 12 balloon ([id number]) 13:27:58 Reinflate 1st Diag EMERGE OTW 5 8 00:09 balloon 3.0 x 12 balloon ([id number]) 13:29:14 Reinflate Mid LAD EMERGE OTW 1 8 00:11 balloon 3.0 x 12 balloon ([id number]) 13:29:48 Reinflate Mid LAD EMERGE OTW 2 12 00:20 balloon 3.0 x 12 balloon ([id number]) Device Usage Item Name Manufacture Quantity Catalog Number Hospital Part Current Min imal Lot# / Charge Number Stock Stock Serial# Code ACIST Acist 1 57023 961361 636392 836757 20 Syringe Medical (10261) Systems Inc Bag Decanter Microtek 1 153166 26644 098733 5 () Medical Inc. Medline Cath Cardinal 1 [id number] 985907 47141 103353 5 Genetic Technologies ([id number]) SHEATH 5FR Terumo 1 WWI424 365245 185708 297298 40 [place] (KLP131) DIAGNOSTIC St Rusty 1 203559 354704 777398 440256 30 WIRE .035 260cm J wire (188739) ACIST Hand Acist 1 92304 570887 580521 548234 5 Control Medical (25644) Systems Inc ACIST Acist 1 99023 565517 476069 947228 5 Manifold Medical (60939) Systems Inc DIAGNOSTIC Cardinal 1 ZY4717 109571 44383 719145 30 Multipack Health 5Fr catheter set (HQ3403) Tegaderm 4 x 3M 1 1626W 019637 973108 942693 5 4 (1626W) PERCUTANEOUS Cook Medical 1 I58941 789969 672553 5 ENTRY 19GA needle MULTIPACK JL Cardinal 1 291889 5 4.0 5Fr Health catheter MULTIPACK Cardinal 1 518256 5 3DRC 5Fr Health catheter MULTIPACK Cardinal 1 776967 5 Pigtail 5 Fr Health catheter INFLATOR Merit 1 DY0927 829268 820284 996293 15 Axial Biotech BasixCompak (UG3181) SHEATH 6FR Terumo 1 QAI534 261931 844147 709729 40 [place] (WIW399) WHISPER Vasquez 1 [id number] 388572 176141 133794 5 300cm guide Vascular wire (2260610DW) GUIDE 6FR JL Medtronic 1 [id number] 804345 50772 402951 1 4.0 catheter (YU2EO75) EMERGE OTW [place] 1 [id number] 048967 597430 900878 5 [id number] 3.0 x 12 Scientific balloon ([id number]) EXOSEAL 6Fr Cardinal 1 EX600 567004 532145 222370 10 (EX600) Health FEMSTOP Gold St Rusty 1 R69549 138482 264114 469967 5 ([id number]) Signature Audit [place] Stage Time Signature Unsigned Intra-Procedure 11/23/2017 Ángela Motta Counts 1:39:13 PM Counts RT(R) RT(R) 11/23/2017 1:56:08 PM Intra-Procedure 11/23/2017 Ángela 2:10:50 PM Counts RT(R) Signatures Monitor : Ángela Signature : Counts RT Date : Time : [facility] [address] [place] [address]
[~2017-11-23 10:51] MED LIST: LEVOTHYROXINE50 MCG PO; PLAVIX75 MG PO; TENORMIN25 MG PO; ZESTRIL20 MG PO; ZYLOPRIM300 MG PO
[2017-11-23] MEDS ORDERED: LIPITOR10 MG PO (11:01)
[2017-11-23 11:16] VITALS: BP 186/76; Ht 160 cm; Wt 70.5 kg
[2017-11-23 11:30] LABS: BASOPHILS 0.3 % (0-2); EOSINOPHILS 3.1 % (0-7); HEMATOCRIT 34.8 % (36.0-48.0); HEMOGLOBIN 12.1 g/dL (12-16); IMMATURE GRANULOCYTES 0.4 % (0-5); LYMPHOCYTES 31.1 % (15-50); MCH 29.1 pg (26.0-34.0); MCHC 34.8 g/dL (31.0-37.0); MCV 83.7 fL (80.0-100.0); MEAN PLATELET VOLUME 10.4 fL (7.4-10.4); NEUTROPHILS 56.1 % (40-80); PLATELET COUNT 228 10x3/uL (130-400); RBC 4.16 10x6/uL (4.00-5.40); RDW 13.4 % (11.5-14.5); WBC 7.1 10x3/uL (4.8-10.8)
[2017-11-23 11:42] LABS: ANION GAP 15.4 mmol/L (8-16); CALCIUM 9.2 mg/dL (8.5-10.1); CARBON DIOXIDE 23.1 mmol/L (21.0-32.0); CREATININE - SERUM 1.2 mg/dL (0.6-1.3); POTASSIUM - SERUM 3.5 mmol/L (3.5-5.1)
[2017-11-23] MEDS ORDERED: PLAVIX75 MG PO (14:19)
[2017-11-23] MEDS ORDERED: BAYER CHEWABLE81 MG PO (14:19)
== END 2017-11-23 18:01 | disposition home or self-care (01) ==
LOC: D.CATH 10:51
PROVIDERS: Internal Medicine Interventional Cardiology
DX: I25.119 Atherosclerotic heart disease of native coronary artery with unspecified angina pectoris (principal); Z95.5 Presence of coronary angioplasty implant and graft; Z01.812 Encounter for preprocedural laboratory examination